=== PATIENT | female | born 1990 | race Caucasian/White ===

== ENCOUNTER 2019-12-27 10:54 | Emergency (ER) | payer BC, OTHER ==
[~2019-12-27] VITALS: Ht 160 cm; Wt 63.5 kg
--- NOTE | 2019-12-27 11:01 | NUR ---
ED Nurse Note: Pt ambulated to ed c/o sore throat and headache since this morning with left earache. No tenderness noted upon palpation of ear.
[2019-12-27 11:02] VITALS: BP 129/86
--- NOTE | 2019-12-27 11:18 | Emergency Room Report ---
History of Present Illness General Chief Complaint: Flu Like Symptoms Source: Patient Present Illness HPI 29-year-old otherwise healthy female here with sore throat and nasal congestion that started today. Patient woke up with the symptoms. Denies any chest pain or shortness of breath or cough. Has not taken her temperature but does not felt febrile. She works in a pharmacy and says that she has been exposed to multiple people that she believes may have been positive for COVID-19. Denies any other complaints at this time. Allergies: Coded Allergies: No Known Allergies (Unverified , 12/27/19) COVID-19 Screening Contact w/high risk pt: No Experienced COVID-19 symptoms?: Yes COVID-19 Testing performed STEM ROLLER: No Patient History Last Menstrual Period: 12/13/19 Nursing Documentation-[facility] Past Medical History: No Stated History Review of Systems All Other Systems: negative except mentioned in HPI Physical Exam Vital Signs Date Time Temp Pulse Resp B/P (MAP) Pulse Ox O2 Delivery O2 Flow Rate FiO2 12/27/19 10:58 97.9 82 17 129/86 (100) 99 Room Air Sp02 EP Interpretation: reviewed, normal General Appearance: no apparent distress, alert, non-toxic Head: normocephalic, atraumatic Eyes: bilateral eye normal inspection, bilateral eye PERRL ENT: hearing grossly normal, normal pharynx, no angioedema, normal voice Neck: full range of motion, supple/symm/no masses Respiratory: chest non-tender, lungs clear, normal breath sounds, speaking full sentences Cardiovascular #1: regular rate, rhythm, no edema Cardiovascular #2: 2+ carotid (R), 2+ carotid (L), 2+ radial (R), 2+ radial (L), 2+ dorsalis pedis (R), 2+ dorsalis pedis (L) Gastrointestinal: normal bowel sounds, non tender, soft, non-distended, no guarding, no rebound Rectal: deferred Genitourinary: normal inspection, no CVA tenderness Musculoskeletal: back normal, normal range of motion, gait/station normal, non- tender Neurologic: alert, motor strength/tone normal, oriented x3, sensory intact, responsive, speech normal Psychiatric: judgement/insight normal, memory normal, mood/affect normal, no suicidal/homicidal ideation Lymphatic: no adenopathy Medical Decision Making Diagnostic Impression: Primary Impression: Influenza-like symptoms ER Course 29-year-old female here with sore throat and nasal congestion that started today. Physical exam did not reveal any tonsillar swelling or exudates. No suspicion at this time for strep throat. She was very well-appearing and had normal oxygen saturation other normal vital signs in the emergency department. She was given Motrin 600 mg p.o. for her sore throat. She said that she has Motrin and Tylenol at home. She was told to take these every 4 hours for her symptoms. She was also told to refrain from returning to work until her symptoms resolve. She was also told to go to an outpatient testing center to be tested for COVID-19. No indication for testing her at this time in the emergency department. Told to come back to the emergency department if she has worsening of her symptoms specifically any shortness of breath. She expressed understanding and was discharged. Last Vital Signs Date Time Temp Pulse Resp B/P (MAP) Pulse Ox O2 Delivery O2 Flow Rate FiO2 12/27/19 11:02 97.9 82 17 129/86 99 Room Air Disposition: HOME, SELF-CARE Condition: Stable Referrals: [facility] Zimmerman [facility] Departure Forms: Return to Work Return to Work in (Days): 5 Patient Instructions: Viral Respiratory Infection, [id number] Additional Instructions: Please follow-up with your primary care doctor in the next 1 to 3 days to discuss this emergency department visit and for reevaluation. If you have any new or worsening symptoms please return to the emergency department for reevaluation. Go to one of the many outpatient COVID-19 testing centers before going back to work. Do not return to work until your symptoms have resolved Sachin Duffy M.D. Dec 27, 2019 11:18
[2019-12-27 11:20] VITALS: BP 125/79
--- NOTE | 2019-12-27 11:20 | NUR ---
ER DISCHARGE NOTE: Patient is cleared to be discharged per ERMD, pt is aox4, on room air, with stable vital signs. pt was given dc and prescription instructions, pt was able to verbalize understanding, pt id band removed. pt is able to ambulate with steady gait. pt took all belongings.
== END 2019-12-27 11:30 | disposition home or self-care (01) ==
LOC: EMR 11:30
DX: R07.0 Pain in throat (principal); R09.81 Nasal congestion
CPT/HCPCS: 99281